=== PATIENT | male | born 1955 | race Caucasian/White ===

== ENCOUNTER 2024-04-29 10:11 | Inpatient (IN) ==
[2024-04-29 11:15] LABS: ABS Basophils 0.1 10^3/uL (0.0-0.1); ABS Eosinophils 0.2 10^3/uL (0.0-0.5); ABS Lymphocytes 0.8 10^3/uL (1.0-4.8); ABS Monocytes 0.5 10^3/uL (0.0-1.1); ABS Neutrophils 5.1 10^3/uL (1.5-7.6); Eosinophil % 3.5 %; Hematocrit 28.8 % (38-53); Hemoglobin 10.1 g/dL (13.2-16.3); Lymphocyte % 11.5 %; Mean Corpuscular Hemoglobin 29.7 pg (27-33); Mean Corpuscular Hgb Conc 35.1 g/dL (31-36); Mean Corpuscular Volume 84.6 fL (80-97); Mean Platelet Volume 7.8 fL (7.5-11.2); Platelet Count 131 10^3/uL (150-450); Red Blood Count 3.41 10^6/uL (4.06-5.63); Red Cell Distribution Width 17.3 % (12-17); White Blood Count 6.6 10^3/uL (3.6-10.2)
[2024-04-29 11:33] LABS: Activated Partial Thrombo Time 29.7 seconds (26.0-38.0); INR 1.07 (0.85-1.14)
[2024-04-29 11:42] LABS: Albumin 3.9 g/dL (3.5-5.7); Albumin/Globulin Ratio 1.3 (1-3); C Reactive Protein 14.92 mg/L (<8.01); Calcium 9.5 mg/dL (8.6-10.3); Creatinine, Serum 5.11 mg/dL (0.67-1.17); Magnesium 1.7 mg/dL (1.9-2.7); Potassium 4.4 mmol/L (3.5-5.0); Total Bilirubin 1.3 mg/dL (0.2-1.0); Total Protein 6.9 g/dL (6.4-8.9); eGFR CKD-EPI 11.5 (>60)
[2024-04-29 12:27] LABS: Venous Bicarbonate HCO3 24.9 mmol/L (24-28)
[2024-04-29 12:53] LABS: High Sensitivity Troponin 1 Hr 12 pg/mL (<20)
[2024-04-29 13:03] LABS: Urine Appearance Clear; Urine Bilirubin Negative (Negative); Urine Blood 1+ (Negative); Urine Color Light-Yellow; Urine Glucose 4+ (>=1000 mg/dL) (Negative); Urine Ketones Negative (Negative); Urine Nitrite Negative (Negative); Urine Protein 1+ (>=30 mg/dL) (Negative); Urine Urobilinogen Negative (Negative); Urine pH 6.5 (5.0-8.0)
[2024-04-29 13:11] LABS: Urine Bacteria Absent /HPF (Absent); Urine Red Blood Cell Trace(0-2/hpf) /HPF (0-Trace); Urine Squamous Epithelial Cell Present /HPF (Absent); Urine White Blood Cell Trace(0-5/hpf) /HPF (0-Trace)
[2024-04-29] MEDS: Iodixanol 320 (CONTRAST) 100 ML SDV IV ONE (13:39)
[2024-04-29] MEDS: Piperacillin/Tazobac 3.375 BAG 3.375 GM/100 ML BAG IV ONE (13:54)
[2024-04-29] MEDS: Lactulose 30 ml UDC PO ONE (13:54)
[2024-04-29] MEDS ORDERED: NS 0.9% 1000 ml BAG 100 ML IV PRN (15:55)
[2024-04-29] MEDS ORDERED: Albumin Human 25% 25 GM/100 ML BTL IV PRN (15:55)
[2024-04-29] MEDS ORDERED: NS 0.9% 1000 ml BAG 200 ML IV PRN (15:55)
[2024-04-29] MEDS ORDERED: Dextrose 50% Syringe 50 ml 25 GM/50 ML SYRINGE IV PUSH PRN (17:51)
[2024-04-29 17:57] LABS: Hepatitis B Surface Antigen Nonreactive (Nonreactive)
[2024-04-29] MEDS ORDERED: Zosyn per Pharmacy NOTE FOLLOW UP SCH (18:00)
[2024-04-29 18:15] LABS: Hepatitis B Surface Ab Not Immune (Immune)
[2024-04-29] MEDS: ZOSYN 3.375 GM Q12H per EXTENDED INFUSION IV SCH (18:21)
[2024-04-29] MEDS: Insulin GLARGINE 100 un/ml 10 ml VIAL SUBCUT ONE (20:03)
[2024-04-29] MEDS: Lactulose 30 ml UDC PO SCH (20:04)
[2024-04-30] MEDS: Heparin 5000 UNITS/ML 1 mL VIAL SUBCUT SCH (01:15)
[2024-04-30 05:31] LABS: ABS Basophils 0.1 10^3/uL (0.0-0.1); ABS Eosinophils 0.3 10^3/uL (0.0-0.5); ABS Monocytes 0.6 10^3/uL (0.0-1.1); ABS Neutrophils 4.1 10^3/uL (1.5-7.6); Eosinophil % 4.7 %; Hematocrit 24.7 % (38-53); Hemoglobin 8.8 g/dL (13.2-16.3); Lymphocyte % 17.1 %; Mean Corpuscular Hemoglobin 30.1 pg (27-33); Mean Corpuscular Hgb Conc 35.6 g/dL (31-36); Mean Corpuscular Volume 84.6 fL (80-97); Mean Platelet Volume 7.3 fL (7.5-11.2); Platelet Count 114 10^3/uL (150-450); Red Blood Count 2.92 10^6/uL (4.06-5.63); Red Cell Distribution Width 17.4 % (12-17); White Blood Count 6.1 10^3/uL (3.6-10.2)
[2024-04-30 05:37] LABS: INR 1.14 (0.85-1.14)
[2024-04-30 06:26] LABS: Albumin 3.4 g/dL (3.5-5.7); Albumin/Globulin Ratio 1.3 (1-3); Calcium 9.2 mg/dL (8.6-10.3); Creatinine, Serum 5.44 mg/dL (0.67-1.17); Globulin 2.7 g/dL (2-4); Magnesium 1.6 mg/dL (1.9-2.7); Total Bilirubin 1.1 mg/dL (0.2-1.0); Total Protein 6.1 g/dL (6.4-8.9); eGFR CKD-EPI 10.7 (>60)
[2024-04-30] MEDS: Heparin 1,000 UNIT/ML 10 ml (10,000 UNITS) CATHLAB/DIALYSIS DIALYSIS PRN (12:40)
[2024-04-30 17:04] VITALS: BP 160/66
== END 2024-04-30 17:10 | disposition home or self-care (01) | DRG 70 ==
LOC: ED 10:11 → EDHOLD 17:40 → MED 21:55
PROVIDERS: ADMIT Internal Medicine; ATTEND Internal Medicine